=== PATIENT | female | born 1975 | race Caucasian/White ===

== ENCOUNTER 2021-03-14 11:42 | Emergency (ER) | payer OTHER, SELFPAY ==
[2021-03-14 11:54] VITALS: BP 130/83; PULSE 100; RESP 18; TEMP 36.7; O2SAT 100; BMI 21.7
--- NOTE | 2021-03-14 12:11 | ED.ASTHMA ---
HPI - Asthma General Chief Complaint: Asthma Stated Complaint: COUGHING DIFF BREATHING CHEST HURTS Time Seen by Provider: 03/14/21 11:57 Source: patient Mode of arrival: ambulatory Limitations: no limitations History of Present Illness HPI Narrative: 46 yo with past medical history of seasonal allergies, moderate asthma here with complaints of wheezing, cough x 2 days despite using flovent, albuterol mdi and claritin. No productive cough, fevers, chills, chest pain, leg swelling or pain. H/o admissions as a child for asthma but none as an adult. No h/o intubations. Used albuterol MDI this morning with persistent symptoms. Related Data Previous Rx's Medication Instructions Recorded benzonatate [Tessalon Perles] 100 mg PO TID PRN #20 cap 03/14/21 prednisone 40 mg PO DAILY #8 tab 03/14/21 Allergies Allergy/AdvReac Type Severity Reaction Status Date / Time amoxicillin [From AUGMENTIN] Allergy Severe ANGIOEDEMA Unverified 06/05/20 19:35 clavulanic acid Allergy Severe ANGIOEDEMA Unverified 06/05/20 19:35 [From AUGMENTIN] Review of Systems Review of Systems: Yes all other systems are reviewed and are negative Constitutional: Constitutional: Reports no additional constitutional complaints, Denies body ache(s), Denies chills, Denies fever(s), Denies headache(s) and Denies weakness Eyes: Eyes: Reports no additional eye complaints and Denies change in vision ENT: Reports system reviewed and no additional complaints, except as documented, Denies dizziness, Denies headache(s), Denies nasal congestion, Denies nasal discharge and Denies neck pain Cardiovascular: Cardiovascular: Reports no additional cardiovascular complaints, Denies chest pain, Denies leg edema and Denies dyspnea Respiratory: Respiratory: Reports no additional respiratory complaints, Reports cough and Denies dyspnea Gastrointestinal: Gastrointestinal: Reports no additional gastrointestinal complaints, Denies abdominal pain, Denies diarrhea, Denies nausea and Denies vomiting Genitourinary: Genitourinary: Reports no additional female genitourinary complaints and Denies urinary incontinence Musculoskeletal: Musculoskeletal: Reports no additional musculoskeletal complaints, Denies back pain, Denies arthralgias, Denies joint swelling, Denies neck pain, Denies numbness and Denies tingling Integumentary/Breasts: Skin/Breast: Reports system reviewed and no additional complaints, except as docu and Denies rash Neurologic: Reports system reviewed and no additional complaints, except as documented, Denies Abnormal speech present, Denies dizziness, Denies headache(s), Denies numbness, Denies tingling and Denies weakness PMFSH Past Medical History Attestation statement: The following information was validated with the patient. Source: old records reviewed and nursing notes reviewed Medical History Angioedema Asthma Social History Social History Advance Directives: No Advance Directives Information Provided: Yes Patient : No Physical Exam Vital Signs: Vital Signs: Last Vital Signs Temp 98.2 F 03/14/21 12:32 Pulse 92 03/14/21 12:32 Resp 16 03/14/21 12:32 BP 127/83 03/14/21 12:32 Pulse Ox 100 03/14/21 12:32 Body Mass Index 21.7 Const: General: cooperative, healthy appearing, comfortable and no acute distress Orientation/consciousness: patient oriented x3 Limitations: no limitations HENMT: Head: Yes normal to inspection Ears: hearing grossly normal bilaterally General nose exam: Normal external nose present Face and sinus: Yes normal facial exam Mouth: Normal oral and palatal mucosa present Throat: Yes posterior oropharynx normal Eyes: General: appearance normal, both eyes and all related structures Pupils: Equal, round and reactive pupils present Neck: Neck: Yes normal visual inspection Chest: Chest palpation & inspection: normal inspection of the chest Resp: Other: +frequent bronchospastic cough Mild exp wheezing throughout Effort & Inspection: normal respiratory effort Cardio: Rate: regular rate Rhythm: regular rhythm Peripheral pulses: Peripheral pulses 2+ throughout GI: Inspection: Yes normal to inspection Palpation (GI): Soft to palpation and nontender Auscultation: normal bowel sounds Back/Spine/Pelvis: Thoracic/Lumbar Spine: thoracic and lumbar spine normal to inspection Skin: General skin exam: no rashes or lesions noted Neuro: General: patient oriented x3, no focal motor deficits and normal sensation to monofilament Cranial nerves: Yes Equal, round and reactive pupils present Cognition (Neuro): normal cognition Speech: No Abnormal speech present Gait exam (Neuro): Normal gait present Motor exam (neuro): 5/5 motor strength present throughout Extrem: General: Yes normal to inspection, Yes no pedal edema and Yes no calf tenderness Course Course Course Narrative: 46 yo female here with complaints of cough, wheezing x 2 days despite using home albuterol. On arrival +frequent bronchospastic cough, mild expiratory wheezing with stable saturations. Will check COVID screen, give duoneb, po pred and re-assess. 1315-COVID negative. Feeling improved after duoneb. Likely asthma exacerbation. Will treat with course of prednisone. Has adequate albuterol at home. Supportive care at home. Reviewed worrisome signs/symptoms with patient and when to return to ED. Comfortable with discharge home. MDM - Asthma Differential Diagnosis Differential diagnosis: Likely Acute exacerbation, Status asthmaticus and Acute asthmatic bronchitis Medical Records Attestation: I reviewed the patient's medical records. Lab Data Attestation: I reviewed the patient's lab results. Labs: Lab Results 03/14/21 Range/Units 12:17 COVID-19 ([facility]) Negative (Negative) COVID-19 Clin Com See Note Discharge Plan Discharge Clinical Impression: Asthma with acute exacerbation Qualifiers: Asthma severity: moderate Asthma persistence: persistent Qualified Code(s): J45.41 - Moderate persistent asthma with (acute) exacerbation Patient Disposition: Home, Self-Care Instructions: Asthma (ED) Additional Instructions: Increase fluids, rest Start prednisone tomorrow Continue your inhalers Your COVID test was negative today Try delsum 12 hr for cough or a tablespoon of honey Prescriptions: New prednisone 20 mg tablet 40 mg PO DAILY Qty: 8 RF: 0 benzonatate [Tessalon Perles] 100 mg capsule 100 mg PO TID PRN (Reason: cough) Qty: 20 RF: 0 Referrals: Quita Florentino MD [Primary Care Provider] - 2 days Interventions: ED Discharge Assessment Last Done: 03/14/21 13:30 Discharge Date/Time: 03/14/21 13:31
[2021-03-14] MEDS: predniSONE 20 MG TABLET 60 MG PO (12:16)
[2021-03-14] MEDS: Albuterol/Iprat 2.5/0.5MG 3 ML AMPUL.NEB INHALE (12:19)
[2021-03-14 12:22] VITALS: PULSE 98; O2SAT 100
[2021-03-14 12:32] VITALS: BP 127/83; PULSE 92; RESP 16; TEMP 36.8; O2SAT 100
[2021-03-14 12:38] LABS: COVID-19 Test Negative (Negative)
== END 2021-03-14 13:31 | disposition home or self-care (01) ==
PROVIDERS: Nurse Practitioner Family; Emergency Provider Emergency Medicine; PCP Internal Medicine
DX: J45.41 Moderate persistent asthma with (acute) exacerbation (principal); Z20.822 Contact with and (suspected) exposure to COVID-19
CPT/HCPCS: 36415; 87635; 94640; 99283; 99284

== ENCOUNTER 2021-05-06 14:26 | Emergency (ER) | payer OTHER, SELFPAY ==
--- NOTE | ~2021-05-06 | XR_ITS ---
EXAMINATION: XR CHEST CLINICAL INFORMATION: Shortness of breath COMPARISON: None TECHNIQUE: Frontal view of the chest was obtained. FINDINGS: Mild left basilar atelectasis. Otherwise lung rashid are grossly clear. There is no effusion. Cardiac silhouette is within normal limits. The hilar regions do not appear pathologically enlarged. XR/XR chest 1V IMPRESSION: Mild left basilar atelectasis
[2021-05-06 14:53] VITALS: BP 124/84; PULSE 114; RESP 19; TEMP 36.8; O2SAT 99; BMI 21.0
--- NOTE | 2021-05-06 15:07 | PC.NURSE ---
pt alert and oriented, skin pwd, respirations even and unlabored, ls clear. pt reprots being covid positive for a week but feels really sob when laying flat and sitting up.
--- NOTE | 2021-05-06 15:27 | ED.URI ---
HPI - URI/Sore Throat General Chief Complaint: Upper Respiratory Symptoms Stated Complaint: covid+ SOB Time Seen by Provider: 05/06/21 15:10 Source: patient Mode of arrival: ambulatory History of Present Illness HPI Narrative: 46-year-old female with a past medical history of asthma, angioedema, COVID-19 positive over a week ago presenting to the ED complaining of persistent SOB and cough since COVID-19 diagnosis. Has been taking montelukast and Singulair at without relief. Reports coughing up white phlegm. Also reports intermittent fevers, denies fever yesterday or today. Denies LE edema, calf pain, recent travel, chest pain, abdominal pain, nausea/vomiting MD elicited complaint: fever and cough Related Data Previous Rx's Medication Instructions Recorded benzonatate 100 mg capsule 100 mg PO TID PRN #20 cap 03/14/21 (Tessalon Perles) prednisone 20 mg tablet 40 mg PO DAILY #8 tab 03/14/21 acetaminophen 500 mg tablet 500 mg PO Q6H PRN #20 tab 05/06/21 (Tylenol Extra Strength) benzonatate 100 mg capsule 100 mg PO TID PRN #14 cap 05/06/21 (Tessalon Perles) fluticasone propionate 50 2 spray INTRANASAL DAILY #16 g 05/06/21 mcg/actuation nasal spray,suspension (Flonase Allergy Relief) Allergies Allergy/AdvReac Type Severity Reaction Status Date / Time amoxicillin [From AUGMENTIN] Allergy Severe ANGIOEDEMA Unverified 06/05/20 19:35 clavulanic acid Allergy Severe ANGIOEDEMA Unverified 06/05/20 19:35 [From AUGMENTIN] Review of Systems Review of Systems: Constitutional: +Fever, No Chills, No Night Sweats, No Fatigue, No Malaise ENT/Mouth: No Ear Pain, No Nasal Congestion, No sore throat, No Rhinorrhea Eyes: No Eye Pain, No Swelling, No Discharge, No Vision Changes Cardiovascular: No Chest Pain, + SOB, No Dyspnea on Exertion, No Edema, No Palpitations Respiratory: + Cough, + Sputum, No Wheezing, No Dyspnea Gastrointestinal: No Nausea, No Vomiting, No Abdominal pain Genitourinary: No Dysuria, No Urinary Frequency Musculoskeletal: No joint pain, + Myalgias, No Joint Swelling Skin: No Skin Lesions, No rash Neuro: No Weakness, No Numbness Yes all other systems are reviewed and are negative [facility] Past Medical History Attestation statement: The following information was validated with the patient. Medical History Angioedema Asthma Social History Social History Patient Tobacco Use Status: Never used Tobacco Use of substances other than those prescribed or required for medical reasons: No Advance Directives: No Advance Directives Information Provided: Yes Patient : No Physical Exam Vital Signs: Vital Signs: Last Vital Signs Temp 97.0 F 05/06/21 16:51 Pulse 74 05/06/21 16:51 Resp 16 05/06/21 16:51 BP 120/81 05/06/21 16:51 Pulse Ox 97 05/06/21 16:51 Body Mass Index 21.0 Const: General: cooperative and healthy appearing Orientation/consciousness: patient oriented x3 Limitations: no limitations HENMT: Head: Yes normal to inspection Ears: hearing grossly normal bilaterally General nose exam: Normal external nose present Face and sinus: Yes normal facial exam Eyes: General: appearance normal, both eyes and all related structures EOM: EOMs intact bilaterally Neck: Neck: Yes normal visual inspection Resp: Effort & Inspection: normal respiratory effort Auscultation: clear to auscultation bilaterally, no rales, no rhonchi and no wheezes Cardio: Rate: regular rate Heart sounds: S1 normal heart sound present and S2 normal heart sound present Skin: Rashes: no rashes Wounds: no wounds Neuro: General: patient oriented x3 Gait exam (Neuro): Normal gait present Extrem: General: Yes normal to inspection, Yes no pedal edema and Yes no calf tenderness Course Course Course Narrative: XR chest 1V IMPRESSION: Mild left basilar atelectasis >> Results discussed with patient including worrisome signs and symptoms and strict return precautions, she verbalized understanding feel safe for discharge home MDM - URI/Sore Throat MDM Narrative Medical decision making narrative: 46-year-old female with a past medical history of asthma, angioedema, COVID-19 positive over a week ago presenting to the ED complaining of persistent SOB and cough since COVID-19 diagnosis. On exam mildly tachycardic, anxious/tearful, lungs CTA, no pedal edema/calf tenderness. Likely side effects of COVID-19. Rule out COVID-19 pneumonia. Low concern for PE/ACS, tachycardia likely secondary to anxiety. No hypoxia Plan: CXR Medical Records Attestation: I reviewed the patient's medical records. Lab Data Attestation: I reviewed the patient's lab results. Discharge Plan Discharge Clinical Impression: COVID-19 Patient Disposition: Home, Self-Care Instructions: COVID-19 (Coronavirus Disease 2019) (ED) Additional Instructions: your x-ray did not show any pneumonia Continue using home prescribed medications Tessalon Perles for cough, take as needed Flonase as a nasal decongestion sprain Continue to self isolate for total of 10-14 days Monitor your oxygen at home, consider buying a pulse oximeter If her symptoms persist or worsen you have constant worsening shortness of breath, chest pain, cough, fever unresolved Tylenol or Motrin please return to the ED Prescriptions: New acetaminophen [Tylenol Extra Strength] 500 mg tablet 500 mg PO Q6H PRN (Reason: pain or fever) Qty: 20 RF: 0 benzonatate [Tessalon Perles] 100 mg capsule 100 mg PO TID PRN (Reason: cough) Qty: 14 RF: 0 fluticasone propionate [Flonase Allergy Relief] 50 mcg/actuation spray,suspension 2 spray intranasal DAILY Qty: 16 RF: 0 No Action prednisone 20 mg tablet 40 mg PO DAILY Qty: 8 RF: 0 benzonatate [Tessalon Perles] 100 mg capsule 100 mg PO TID PRN (Reason: cough) Qty: 20 RF: 0 Referrals: Quita Florentino MD [Primary Care Provider] - 2 days
[2021-05-06] MEDS: Benzonatate 100 MG CAPSULE 200 MG PO (15:51)
[2021-05-06] MEDS: HYDROcodone/Homat 5/1.5/5 ML 5 ML SYRUP PO (15:51)
[2021-05-06 16:51] VITALS: BP 120/81; PULSE 74; RESP 16; TEMP 36.1; O2SAT 97
== END 2021-05-06 17:15 | disposition home or self-care (01) ==
PROVIDERS: Emergency Provider Emergency Medicine; PCP Internal Medicine
DX: U07.1 COVID-19 (principal); R06.02 Shortness of breath; R50.9 Fever, unspecified; Z79.899 Other long term (current) drug therapy
CPT/HCPCS: 71045; 99283; 99284

== ENCOUNTER 2021-11-27 07:37 | Outpatient (REF) | payer OTHER, SELFPAY | END 2021-11-27 07:38 | disposition home or self-care (01) | LOC: HO.HOSX 07:37 | PROVIDERS: Visit Provider Physician Assistant | DX: Z13.89 Encounter for screening for other disorder (principal) ==

== ENCOUNTER 2021-11-30 07:37 | Outpatient (REF) | payer OTHER, SELFPAY ==
--- NOTE | ~2021-11-30 | XR_ITS ---
EXAMINATION: XR FOOT, LEFT CLINICAL INFORMATION: Pain left foot. M79.672 COMPARISON: None TECHNIQUE: AP, lateral, and oblique views of the left foot. FINDINGS: There is no acute or healing fracture, dislocation, destructive process. Normal bony mineralization. No periostitis. No focal joint narrowing or erosive change. There is tiny posterior calcaneal spur. The retrocalcaneal recess is preserved. XR/XR foot LT min 3V IMPRESSION: No fracture or arthropathy. Tiny posterior calcaneal spur.
== END 2021-11-30 07:38 | disposition home or self-care (01) ==
LOC: HO.HOSX 07:37
PROVIDERS: Visit Provider Physician Assistant
DX: M79.672 Pain in left foot (principal); M76.72 Peroneal tendinitis, left leg
CPT/HCPCS: 73630; 99202